=== PATIENT | female | born 1985 | race Two or more races ===

== ENCOUNTER 2024-06-26 20:54 | Emergency (ER) | payer OTHER ==
[~2024-06-26] VITALS: Ht 167.6 cm; Wt 80.7 kg
[2024-06-27 05:40] VITALS: BP 138/79; TEMP 97.7; O2SAT 99
== END 2024-06-27 05:35 | disposition home or self-care (01) ==
LOC: ER 20:54
DX: R22.41 Localized swelling, mass and lump, right lower limb (principal); F31.9 Bipolar disorder, unspecified; F20.9 Schizophrenia, unspecified; F17.210 Nicotine dependence, cigarettes, uncomplicated; Z98.890 Other specified postprocedural states; Z60.2 Problems related to living alone
CPT/HCPCS: 73630; A4606; A4663